=== PATIENT | female | born 1975 | race Two or more races ===

== ENCOUNTER → 2023-08-02 12:17 | Outpatient (REF) | payer OTHER, SELFPAY | LOC: RAD 12:17 | PROVIDERS: ATTENDING PHYSICIAN Surgery Vascular Surgery; FAMILY PHYSICIAN Internal Medicine | DX: Z01.818 Encounter for other preprocedural examination (principal); I87.1 Compression of vein | CPT/HCPCS: 93922; 93925; 93970 ==

== ENCOUNTER → 2023-10-04 12:19 | Outpatient (REF) | payer MEDICARE, SELFPAY ==
[2023-10-04 13:12] VITALS: BP 102/85; BP_SYST 86
[2023-10-04 14:47] VITALS: BP 126/73; BP_SYST 89
[2023-10-04 15:40] VITALS: BP 148/77
[2023-10-04 15:46] LABS: Glucose - Point of Care 401 mg/dl (70-99)
[2023-10-04 15:46] LABS: Glucose - Point of Care 401 mg/dl (70-99)
== END ==
LOC: RADI 12:19
PROVIDERS: ATTENDING PHYSICIAN Physician Assistant; FAMILY PHYSICIAN Internal Medicine
DX: T82.49XA Other complication of vascular dialysis catheter, initial encounter (principal); Y82.8 Other medical devices associated with adverse incidents; N18.6 End stage renal disease
CPT/HCPCS: 36581; 77001; 82962; C1750; C1769